=== PATIENT | female | born 1980 | race Hispanic/Latino ===

== ENCOUNTER 2018-03-03 05:20 | Day surgery (SDC) | payer SELFPAY ==
--- NOTE | 2018-03-03 06:01 | EKG12_ITS ---
Test Reason : PRE OP Blood Pressure : / mmHG Vent. Rate : 063 BPM Atrial Rate : 063 BPM P-R Int : 126 ms QRS Dur : 076 ms QT Int : 402 ms P-R-T Axes : 020 078 045 degrees QTc Int : 411 ms Normal sinus rhythm Normal ECG No previous ECGs available Confirmed by SHAILESH CANALES, RALPH ([id number]), metropolitan editor DAYDAY GALVAN ([id number]) on 03/08/2018 11:11:08 AM Referred By: Stephanie Crawley Confirmed By:RALPH CASH MD
[2018-03-03 06:31] VITALS: BP 101/58; PULSE 60; RESP 18; TEMP 36.8; O2SAT 100; BMI 26.1
[2018-03-03 06:31] LABS: Internal QC Validated? YES +Cl - CLEAR BKGD; Pregnancy, Urine Negative Negative
[2018-03-03 06:31] LABS: Hematocrit 40.1 % (37-47); Hemoglobin 13.3 g/dl (12.0-15.0); Mean Corp Hgb Conc 33.2 g/gl (32-36); Mean Corpuscular Hgb 30.2 pg (27.0-32.0); Mean Corpuscular Volume 91.1 fL (81-99); Mean Platelet Vol. 10.3 fl (6.2-12.0); Platelet Count 230 K/mm3 (150-450); RBC Distribution Width CV 13.5 % (11.6-14.6); White Blood Count 6.1 K/mm3 (4.4-11.0)
[2018-03-03 06:32] LABS: Scan Indicated on CBC? Y/N NO
--- NOTE | 2018-03-03 07:30 | BAR_PTH ---
PATIENT: NAPOLEON MILLER LOC: [facility] – [place] U#:[id number] AGE/SX: 38/F ROOM: RE03/03/[address]: Dr. Stephanie Crawley, MDDOB: 1980 BED: DIS: 03/03/2018 SPEC #: [id number] RECD: 03/03/18 09:27 STATUS: LUIS F MAO #: [id number] SUSHIL: 03/03/18 07:[address]: Stephanie Crawley DEPT: SURGICAL PATHOLOGY RECD BY: Zane Bah ENTERED: 03/03/18 09:52 SP TYPE: IBIS CYST OTHR DR: Jennifer [facility] Tissues: Bartholin's gland cyst Procedures: Surgery Specimen Level III HEADER OPERATION: Marsupialization of Bartholin gland cyst PRE-OP DIAGNOSIS: Cyst of Bartholin gland TISSUE SUBMITTED: Bartholin gland cyst MICROSCOPIC DIAGNOSIS Bartholin gland cyst, biopsy: A piece of fibroconnective tissue with focal area of hemorrhage. See comment. IKER:markos 03/04/18 COMMENT No lining epithelium is noted. Clinical correlation and appropriate follow up are necessary. MICROSCOPIC DESCRIPTION Slides are reviewed. GROSS DESCRIPTION Received in fixative is one container labeled with the patient's name and designated Bartholin gland cyst. The specimen consists of a piece of mitchell soft tissue measuring 1.2 x 0.5 x 0.3 cm. The specimen is totally submitted in one cassette. / IKER:markos 03/03/18 TC:5 CPT: 70658
--- NOTE | 2018-03-03 07:49 | PCM.OPRPT ---
Report of Operation Date of Procedure: 03/03/18 Pre-Operative Diagnosis: recurrent bartholin's gland cyst Post-Operative Diagnosis: same Surgery/Procedure Performed:: Marsupilization of bartholin's gland cyst Description of Surgical Findings:: 3-4 cm right bartholin's gland cyst. Yellow fluid expelled on incision and drainage. No surrounding erythema or cellulitis Type of Anesthesia:: Local MAC Specimen's removed: portion of bartholin's gland cyst wall Drains: none Estimated Blood Loss (mL): 5cc Fluids Replaced: 700 Description of Procedure: Consent was obtained prior to the operation. Patient was taken the operating room she was placed in supine position. She was given MAC anesthesia. She was then placed in the [facility] and she was prepped and draped in normal sterile fashion. At this time 10cc 1% lidocaine with epinephrine was injected on the right labia at 8 o'clock position. At this time scalpel was used to make an incision at the hymenal edge. Upon incision moderate amount of straw-colored fluid was expelled. This clamps were used to grasp the vaginal tissue which was everted the cyst wall was then grasped and everted. There is no surrounding erythema or cellulitis. At this time a portion of the cyst wall was removed sent to pathology for evaluation. Cyst wall was completely opened and the cyst wall was then imbricated into the labia and vaginal tissue in an interrupted fashion. Good hemostasis was appreciated. No complications. No implantable devices. Vaginal sweep was performed negative. Tolerated procedure well. There were no complications. Anticipated normal postoperative course. - Complications none - Admit VTE Documentation VTE Present on Admission: Yes VTE Mechan Device Prophylaxis: [facility] [place]'s VTE Pharm Prophylaxis ordered?: No
--- NOTE | 2018-03-03 07:55 | OP.PCM_ITS ---
Report of Operation Date of Procedure: 03/03/18 Pre-Operative Diagnosis: recurrent bartholin's gland cyst Post-Operative Diagnosis: same Surgery/Procedure Performed:: Marsupilization of bartholin's gland cyst Description of Surgical Findings:: 3-4 cm right bartholin's gland cyst. Yellow fluid expelled on incision and drainage. No surrounding erythema or cellulitis Type of Anesthesia:: Local MAC Specimen's removed: portion of bartholin's gland cyst wall Drains: none Estimated Blood Loss (mL): 5cc Fluids Replaced: 700 Description of Procedure: Consent was obtained prior to the operation. Patient was taken the operating room she was placed in supine position. She was given MAC anesthesia. She was then placed in the [facility] and she was prepped and draped in normal sterile fashion. At this time 10cc 1% lidocaine with epinephrine was injected on the right labia at 8 o'clock position. At this time scalpel was used to make an incision at the hymenal edge. Upon incision moderate amount of straw-colored fluid was expelled. This clamps were used to grasp the vaginal tissue which was everted the cyst wall was then grasped and everted. There is no surrounding erythema or cellulitis. At this time a portion of the cyst wall was removed sent to pathology for evaluation. Cyst wall was completely opened and the cyst wall was then imbricated into the labia and vaginal tissue in an interrupted fashion. Good hemostasis was appreciated. No complications. No implantable devices. Vaginal sweep was performed negative. Tolerated procedure well. There were no complications. Anticipated normal postoperative course. - Complications none - Admit VTE Documentation VTE Present on Admission: Yes VTE Mechan Device Prophylaxis: [facility] [place] VTE Pharm Prophylaxis ordered?: No
--- NOTE | 2018-03-03 07:58 | DCINST_ITS ---
You will use the following diet at home:: No restrictions Discharge Activity: Return to Normal Activity, May Shower Return to work on:: 03/08/18 May resume sexual activity in: 2 weeks Call your doctor if your incision/area has: Continuous Slow Oozing, Sudden Inc reased Bleeding, Increased Pain/ Swelling, Increased Redness, Foul Smelling Discharge, Swelling at the incision site Call your doctor if you observe: Fever of 101 or Higher Cleanse incision/area with: Soap & Water Allergies/Adverse Reactions: Allergies No Known Allergies Allergy (Verified 03/01/18 15:02) Medications to take at Discharge Multivitamin [Multiple Vitamins] 1 each PO DAILY 03/01/18 Primary Care Physician: Jennifer Naik [Primary Care Provider] - Test Results: Test results from this visit will be discussed in further detail at your follow- up appointment, if applicable. Please Follow Up With: Stephanie Crawley MD When: 2 weeks for post op exam
[2018-03-03 08:04] VITALS: BP 101/58; BP 90/58; PULSE 68; RESP 16; TEMP 36.3; O2SAT 98
[2018-03-03 08:10] VITALS: BP 101/58; BP 89/55; PULSE 60; RESP 16; O2SAT 99
[2018-03-03 08:15] VITALS: BP 101/58; BP 90/61; PULSE 60; RESP 16; O2SAT 99
[2018-03-03 08:20] VITALS: BP 101/58; BP 90/60; PULSE 60; RESP 16; TEMP 36.3; O2SAT 99
[2018-03-03] MEDS: HYDROcodone Bitartrate/Apap 5/325 Tablet PO (08:46)
[2018-03-03 09:09] VITALS: BP 100/60; BP 101/58; PULSE 56; RESP 16; TEMP 36.1; O2SAT 98
== END 2018-03-03 09:34 | disposition home or self-care (01) ==
LOC: SDC 05:25 → AC 05:25
PROVIDERS: Referring Provider Obstetrics & Gynecology; Visit Provider Obstetrics & Gynecology
PROC: (CPT 56440; principal; 2018-03-03 07:15)
DX: N75.0 Cyst of Bartholin's gland (principal)
CPT/HCPCS: 00940; 56440; 36415; 81025; 85027; 88304; 93005; J7120

== ENCOUNTER → 2024-08-26 | Outpatient (CLI) | payer SELFPAY ==
--- NOTE | 2024-08-26 12:13 | BI_ITS ---
EXAM: SCRN MAMM (CAD)W/YOLANDE BILAT DATE: 08/26/2024 CLINICAL HISTORY: F, Age 44 y/o , SCREENING BREAST CANCER RISK ASSESSMENT: Has not been calculated. TECHNIQUE: Bilateral screening digital breast tomosynthesis with 2D and 3D images. Computer aided detection. COMPARISON: Prior exam(s) dated 10/09/2015 and 01/26/2013. FINDINGS: TISSUE DENSITY: The breast tissue is heterogenously dense, which may obscure small masses. Bilateral Breast Mammographic Findings: There is a 17 mm nodular density in the medial, middle 3rd aspect of the right breast. Further workup is indicated. There are no suspicious masses, suspicious clustered microcalcifications, architectural distortion or secondary signs of malignancy identified in the left breast. BI/SCRN MAMM (CAD)W/YOLANDE BILAT IMPRESSION: Right Breast: BIRADS 0 Incomplete: Need additional imaging evaluation and/or pr ior mammograms for comparison.. Left Breast: BIRADS 2 BENIGN FINDING. OVERALL FINAL ASSESSMENT: BIRADS 0 Incomplete: Need additional imaging evaluati on and/or prior mammograms for comparison. RECOMMENDATION: Incomplete: Need additional imaging evaluation and/or prior mammograms for comp arison. Patient should return for an LM view of the right breast as well as spot compression CC and spot compression MLO view o f the right breast nodular density. Ultrasound may also be needed. A letter with findings and recommendations will be mailed to the patient. Reading Location: [id number]
== END | disposition home or self-care (01) ==
LOC: OPBI 12:07
PROVIDERS: PCP Family Medicine; Referring Provider Family Medicine; Visit Provider Family Medicine
DX: Z12.31 Encounter for screening mammogram for malignant neoplasm of breast (principal)
CPT/HCPCS: 77063; 77067

== ENCOUNTER → 2024-09-02 | Outpatient (CLI) | payer SELFPAY ==
--- NOTE | 2024-09-02 13:34 | BI_ITS ---
EXAM: DIAG MAMM W/CAD, UNILAT; RT BRST UNILAT YOLANDE ADD-ON; BREAST LIMITED UNILATERAL 09/02/2024 CLINICAL HISTORY: 44-year-old female presents for follow-up of the right breast findings seen on examination of 08/26/2024. Family history of breast cancer in her sister at age 42. TECHNIQUE: Right Diagnostic digital breast tomosynthesis with 2D and 3D images. Computer aided detection. Also, targeted right breast ultrasound was performed. COMPARISON: Prior exam(s) dated 08/26/2024, 10/09/2015, 01/26/2013. FINDINGS: MAMMOGRAM: TISSUE DENSITY: The breast tissue is heterogenously dense, which may obscure small masses. Right breast Mammographic Findings: Follow-up examination performed for the focal asymmetry seen in the central inner right breast at middle depth on examination of 08/26/2024. On the present examination, the focal asymmetry in the central inner right breast at middle depth persist. ULTRASOUND: Ultrasound performed of the medial right breast demonstrates a circumscribed hypoechoic mass with mild internal vascularity in the right breast at 6 o'clock 2 cm from the nipple, measuring 1.9 x 1.8 x 0.9 cm. This is the likely correlate for the mammographic finding. BI/Rt Brst Unilat Yolande Add-On IMPRESSION: Probably benign mass in the right breast at 6 o'clock, likely represents a fibr oadenoma. Recommend short interval six-month right breast diagnostic ultrasound for further evaluation. Right Breast: BIRADS 3 PROBABLY BENIGN. OVERALL FINAL ASSESSMENT: BIRADS 3 PROBABLY BENIGN. RECOMMENDATION: Short interval follow-up with diagnostic right breast ultrasound. A letter with findings and recommendations will be mailed to the patient. Reading Location: [id number]
--- NOTE | 2024-09-02 13:35 | BI_ITS ---
EXAM: DIAG MAMM W/CAD, UNILAT; RT BRST UNILAT YOLANDE ADD-ON; BREAST LIMITED UNILATERAL 09/02/2024 CLINICAL HISTORY: 44-year-old female presents for follow-up of the right breast findings seen on examination of 08/26/2024. Family history of breast cancer in her sister at age 42. TECHNIQUE: Right Diagnostic digital breast tomosynthesis with 2D and 3D images. Computer aided detection. Also, targeted right breast ultrasound was performed. COMPARISON: Prior exam(s) dated 08/26/2024, 10/09/2015, 01/26/2013. FINDINGS: MAMMOGRAM: TISSUE DENSITY: The breast tissue is heterogenously dense, which may obscure small masses. Right breast Mammographic Findings: Follow-up examination performed for the focal asymmetry seen in the central inner right breast at middle depth on examination of 08/26/2024. On the present examination, the focal asymmetry in the central inner right breast at middle depth persist. ULTRASOUND: Ultrasound performed of the medial right breast demonstrates a circumscribed hypoechoic mass with mild internal vascularity in the right breast at 6 o'clock 2 cm from the nipple, measuring 1.9 x 1.8 x 0.9 cm. This is the likely correlate for the mammographic finding. 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 Recommend short interval six-month right breast diagnostic ultrasound for further evaluation. Right Breast: BIRADS 3 PROBABLY BENIGN. OVERALL FINAL ASSESSMENT: BIRADS 3 PROBABLY BENIGN. RECOMMENDATION: Short interval follow-up with diagnostic right breast ultrasound. A letter with findings and recommendations will be mailed to the patient. Reading Location: [id number]
== END | disposition home or self-care (01) ==
LOC: OPBI 13:26
PROVIDERS: PCP Family Medicine; Referring Provider Family Medicine; Visit Provider Family Medicine
DX: R92.8 Other abnormal and inconclusive findings on diagnostic imaging of breast (principal)
CPT/HCPCS: 76642; 77061; 77065; G0279